=== PATIENT | male | born 1955 | race Caucasian/White ===

== ENCOUNTER 2018-06-19 16:17 | Emergency (ER) | payer OTHER, SELFPAY ==
[2018-06-19 16:17] VITALS: BP 165/105; PULSE 72; RESP 18; TEMP 36.4; O2SAT 97; BMI 33.7
--- NOTE | 2018-06-19 16:29 | CT_ITS ---
STUDY: CT BRAIN WITHOUT CONTRAST REASON FOR EXAM: Male, 63 years old. Headache. RADIATION DOSAGE (If Supplied By Facility): CTDIvol = ( 60.81 ) mGy, DLP = ( 1089.89 ) mGycm TECHNIQUE: Transaxial CT imaging of the brain was performed without administration of intravenous contrast material. Individualized dose optimization techniques were used for this CT. COMPARISON: None. FINDINGS: Normal soft tissue structures. Normal calvarium. Normal size ventricles and extra-axial spaces for the patient's age. Normal white matter tracts of the cerebral hemispheres. Normal basal ganglia and thalami. Normal brainstem. Normal cerebellum. There is no intracranial hemorrhage. There are no findings of an acute ischemic infarction. Normal visualized paranasal sinuses. CT/Brain/Head without Contrast IMPRESSION: Normal unenhanced CT scan of the brain. Electronically Signed: Terri Chapman MD at 17:32 EST Tel , Service support ,
--- NOTE | 2018-06-19 16:34 | ED.VISSUMM ---
- ER Visit Summary Date of Service: 06/19/18 Chief Complaint: Headache History of Present Illness: The patient is a 63 M who developed pain in the base of his left occiput approximately 7 days ago. He states he initial had a focal area of swelling there. It was also associated the left frontal headache. Over the past couple of days his entire scalp has become painful and he states his hair hurts. He did note some left upper dental pain today. He went to urgent care but was sent to the ER due to concern for trigeminal neuralgia. Patient denies fever or chills. He denies head injury. Physical Examination: Vital signs significant for blood pressure 165/105, otherwise unremarkable. Patient is lying in a well lit room in no acute distress. Head neck examination reveals no obvious sign of trauma. TMs are clear bilaterally. He has reproducible tenderness at the base of the left occiput. No midline cervical tenderness. Heart is regular rate and rhythm. Lung sounds are clear. Abdomen is soft nontender. Neuro exam reveals good strength and sensation throughout. Test Results: CBC and chemistry studies are unremarkable. CT head is normal. Emergency Department Course and Treatment: Patient was given morphine, Zofran, Flexeril, and Toradol. On repeat evaluation he is resting comfortably. I discussed with him I believe he has occipital neuralgia with pain radiating up across the scalp. Intraoral examination does reveal the left maxillary second molar to be broken at the gumline with some mild gum edema. He will be covered with antibiotics for this and given a dental referral list. He will be given prescriptions for Naprosyn, Flexeril, prednisone, and 10 tabs of [place]. Treatment Plan: [] Disposition: Discharge Impression: 1. Occipital neuralgia 2. Odontalgia This note was generated with Expert dictation software. It may contain incorrect words, spelling, and punctuation that were not noted in review of the chart prior to signing ED Disposition - Plan for ED Patient: Chief Complaint: Headache Referrals: Care Physician,No Primary [Primary Care Provider] -
[2018-06-19] MEDS: 0.9% Normal Saline 1,000 ML 999 ML IV (16:47)
[2018-06-19] MEDS: Ketorolac 30 MG/ML Syringe IV (16:48)
[2018-06-19] MEDS: Ondansetron 4 MG/2 ML Vial IV (16:48)
[2018-06-19] MEDS: Morphine 4 MG/ML Syringe IV (16:49)
[2018-06-19 17:16] LABS: Anion Gap 8 (5-15); BUN 20 mg/dL (7-18); BUN/Creat Ratio 19.6 RATIO (10-20); Calcium,Total 8.9 mg/dL (8.5-10.1); Chloride 106 mmol/L (98-107); Creatinine, Serum 1.02 mg/dL (0.70-1.30); EST Glomerular Filtration Rate 79 mL/min (>60); Est Glom Filt Rate - Afr Amer 96 mL/min (>60); Estimated Creatinine Clearance 93.37 ml/min; Glucose 92 mg/dL (74-106); Potassium 3.9 mmol/L (3.5-5.1); Sodium Level 142 mmol/L (136-145)
[2018-06-19 17:19] LABS: Absolute Lymphocyte Count 1.09 X10^3/ul (0.83-4.51); Absolute Neutrophil Count 3.2 X10^3/uL (2.0-7.7); Basophil# 0.05 X10^3/uL; Eosinophil# 0.15 X10^3/uL; Eosinophils% 2.9 % (0-5); Hematocrit 40.7 % (40-54); Lymphocyte # 1.09 X10^3/ul (4.0); Mean Corp Hgb Conc 34.4 g/gl (32-36); Mean Corpuscular Volume 90.2 fL (80-94); Mean Platelet Vol. 10.3 fl (6.2-12.0); Monocyte# 0.73 X10^3/uL; Monocyte% 14.1 % (0-10); Neutrophil # 3.16 X10^3/uL (2.7-7.7); Neutrophil % 60.8 % (47-70); Platelet Count 204 K/mm3 (150-450); RBC Distribution Width CV 12.3 % (11.6-14.6); RBC Distribution Width SD 40.4 fl (35.1-43.9); Red Blood Count 4.51 M/mm3 (4.6-6.2); White Blood Count 5.2 K/mm3 (4.4-11.0)
[2018-06-19 17:20] LABS: POSITIVE COUNT NO; POSITIVE DIFFERENTIAL NO; POSITIVE MORPHOLOGY NO
--- NOTE | 2018-06-19 18:31 | ED.DEP ---
ED Disposition - Plan for ED Patient: Disposition: Home or Assisted Living Chief Complaint: Headache Instructions: ED Tooth Pain, ED Cephalgia Unspecified Prescriptions: Hydrocodone Bitart/Apap 5-325 [[place] 5MG-325MG] 1 tablet PO Q4H PRN PRN 2 Days #10 tablet PRN Reason: Pain Naproxen [Naprosyn] 500 mg PO BID PRN PRN #20 tablet PRN Reason: Pain Prednisone 10 mg PO UD #33 tablet Cyclobenzaprine [Flexeril] 10 mg PO TID PRN #20 tablet PRN Reason: Muscle Spasm Penicillin V Potassium 500 mg PO 4X/DAY #40 tablet Referrals: Sally Walker MD [STAFF PHYSICIAN] - 1 Week
--- NOTE | 2018-06-19 18:34 | DCINST.ED_ITS ---
ED Disposition - Plan for ED Patient: Disposition: Home or Assisted Living Chief Complaint: Headache Instructions: ED Tooth Pain, ED Cephalgia Unspecified Prescriptions: Hydrocodone Bitart/Apap 5-325 [[place] 5MG-325MG] 1 tablet PO Q4H PRN PRN 2 Days #10 tablet PRN Reason: Pain Naproxen [Naprosyn] 500 mg PO BID PRN PRN #20 tablet PRN Reason: Pain Prednisone 10 mg PO UD #33 tablet Cyclobenzaprine [Flexeril] 10 mg PO TID PRN #20 tablet PRN Reason: Muscle Spasm Penicillin V Potassium 500 mg PO 4X/DAY #40 tablet Referrals: Sally Walker MD [STAFF PHYSICIAN] - 1 Week
[2018-06-19 18:52] VITALS: BP 128/74; PULSE 62; RESP 16; O2SAT 100
[2018-06-19 18:53] VITALS: BP 128/74; PULSE 62; RESP 16; O2SAT 100
== END 2018-06-19 18:55 | disposition home or self-care (01) ==
PROVIDERS: Emergency Provider Emergency Medicine
DX: M54.81 Occipital neuralgia (principal); K08.89 Other specified disorders of teeth and supporting structures
CPT/HCPCS: 70450; 80048; 85025; 96361; 96374; 96375; 99283; J7030; A4216; J2405

== ENCOUNTER 2024-03-11 09:35 | Day surgery (SDC) | payer MEDICARE, OTHER, SELFPAY ==
[2024-03-11] VITALS (11 sets, daily range): BP systolic 137–167; BP diastolic 82–97; PULSE 66–76; RESP 14–16; TEMP 36.3–37.2; O2SAT 96–100; BMI 32.8
--- NOTE | 2024-03-11 10:19 | CT_ITS ---
STUDY: CT CHEST WITHOUT CONTRAST REASON FOR EXAM: Male, 68 years old. Left axilla laceration, trauma RADIATION DOSAGE (If Supplied By Facility): CTDIvol = ( 18.04 ) mGy, DLP = ( 671.72 ) mGycm TECHNIQUE: Transaxial imaging was performed without the administration of intravenous contrast material. Multiplanar coronal and sagittal images were reformatted. Individualized dose optimization techniques were used for this CT. COMPARISON: No relevant priors. FINDINGS: CHEST Soft tissue injury is seen in the left axilla with the tiny air bubbles within the subcutaneous tissues intimate with the history of left axillary injury. There is evidence of overlying skin ulceration. Mild degree of increased markings in the subcutaneous tissues suggestive of edema. Calcified granuloma in the left lower lobe. There is no demonstrated pleural abnormality. There are calcifications of the coronary arteries. Normal mediastinum. Calcified left hilar lymph nodes. Normal unenhanced pulmonary arteries. Normal aorta arch and descending thoracic aorta. There are multi-level degenerative changes of the thoracic spine. There is no demonstrated abnormality of the visualized upper abdomen. CT/Chest without Contrast IMPRESSION: Soft tissue injury in the left axillary region as described. No evidence of hematoma or foreign body. Electronically Signed: Buck Sunshnie MD at 11:13 EDT ,
[2024-03-11] MEDS: Diphth,Pertuss(Acell),Tet Vac 0.5 ML Vial IM (10:36)
[2024-03-11] MEDS: Lidocaine 1% /Epi 1:100 (20ml) 20 ML Vial INFILT (10:37)
--- NOTE | 2024-03-11 10:39 | EX.ED.GENINJ ---
HPI History of Present Illness Chief Complaint: Laceration Informant: patient Narrative Narrative: Patient is a 68-year-old male with no significant past medical history (not seen a doctor in at least 10 years) presenting for laceration repair. Patient was walking out of his house and stepping off the front porch on the bottom step. He slipped on the bottom step and fell. He landed on an or mental castellano's hook underneath his left axilla. He sustained a laceration to the area. He initially did not think too much of it but when he went to pad it off his finger actually went at least 2 which is into the wound. He came in for further evaluation. He denies any associated numbness or tingling. Denies any chest pain or shortness of breath. He is not sure when his last tetanus was. He states he did hit his head a little bit on the multiple soft. Denies any associate loss of conscious. No other complaints or concerns at this time. Did take 2 Advil prior to arrival Tetanus Immunization: Unknown [facility] Home Medications ?Medication ?Instructions ?Recorded ?Last Taken ?Type cyclobenzaprine 10 mg tablet 10 mg PO TID PRN Muscle Spasm ##20 06/19/18 Unknown Rx naproxen 500 mg tablet 500 mg PO BID PRN PRN Pain #20 tabs 06/19/18 Unknown Rx penicillin V potassium 500 mg 500 mg PO 4X/DAY #40 tabs 06/19/18 Unknown Rx tablet prednisone 10 mg tablet 10 mg PO UD #33 tabs 06/19/18 Unknown Rx Allergy/AdvReac Type Severity Reaction Status Date / Time No Known Allergies Allergy Verified 03/11/24 09:36 Social History Smoking Status: Light Smoker (<10/day) ROS [facility] ED Constitutional Constitutional ED: Denies chills or fever(s) Eyes Eyes: Denies blurry vision or change in vision Cardiovascular Cardiovascular: Denies chest pain or palpitations Respiratory/Chest Respiratory/Chest: Denies cough or dyspnea Gastrointestinal Gastrointestinal: Denies nausea or vomiting Integumentary Reports other Details: left axilla laceration Neurologic Neurologic: Denies headache(s), paresthesias or weakness Hematologic/Lymphatic Hematologic/Lymphatic: Denies easy bleeding or easy bruising EXAM Physical Exam Const Vital Signs: 03/11/24 09:37 03/11/24 11:36 03/11/24 12:50 Temperature 98.9 F 97.5 F L Temperature Source Temporal Pulse Rate 75 66 76 Respiratory Rate 14 14 15 Blood Pressure 167/86 H 146/85 H 137/82 H Blood Pressure Mean 113 105 100 Pulse Ox 100 99 98 Oxygen Delivery Method Room Air Room Air Positive well nourished and well developed General Appearance ED: well developed and NAD HEENT Reports TM's clear HEENT Narrative: No cephalhematoma or signs of head trauma atraumatic Nose: Negative for septum abnormal Tympanic Membrane ED: Yes TM's clear Eyes PERRL Chest Wall inspection of chest normal and palpation of chest normal Chest Narrative: No chest wall crepitus appreciated Resp normal respiratory effort and clear to auscultation bilaterally Auscultation: Negative for diminished lung sounds Cardio regular rhythm Cardio Narrative: 2+ radial pulses Rate: regular rate GI normal to inspection, nondistended, normoactive bowel sounds and non-tender Palpation: soft; Negative for tender or guarding Extremity normal to inspection and full ROM General Extremety ED: Negative for deformity General Extremity: Negative for deformity Neuro oriented x3, moves all extremities, no focal motor deficits and no sensory deficits noted [place] Coma Scale: document GCS findings Spontaneous Obeys Commands Oriented 15 Sensorium / Orientation: alert Psych mental status grossly normal and thought process normal Skin Skin Narrative: Patient has a 7 cm linear full-thickness laceration in his left axilla. It tracks down at least 4 cm deep. No active bleeding at this time. There is some associated surrounding erythema/abrasion at the same level extending to his back. MDM MDM MDM Narrative Medical decision making narrative: Patient evaluated for left axilla laceration. It is quite deep and given the proximity to the thorax obtain a CT to ensure there is no deeper tracking or associated pulmonary/vascular injury. He overall is quite well-appearing. He is not any significant pain. He does not report any major head trauma and has a normal neurologic exam, normal neurovascular exam and does not appear distracted by his injury. I do not think he requires any head or C-spine imaging. Will update the patient's tetanus and perform laceration repair after CT of the chest. CT reviewed by myself shows the wound with free air tracking all the way to the pectoralis muscle. It appears to be at least 8 cm deep. I did discuss the case with Dr. Guillen, plastic surgery due to the extensive nature of the laceration. CT is removed by plastic surgeon as well. Thankfully there does not appear to be any major vascular or neurologic injury (based on physical exam as well as imaging). He does recommend operative cleanout because of the high risk of infection and how deep the wound tracks. Patient is agreeable with this. Patient is given dose of fentanyl and Zofran and will be transferred to the OR for surgical washout and closure. Patient agreeable this plan of care. Radiography Diagnostic Testing: Clinical Impression(s) from Imaging Studies Chest CT 03/11/24 10:19 IMPRESSION: Soft tissue injury in the left axillary region as described. No evidence of hematoma or foreign body. Electronically Signed: Buck Sunshine MD at 11:13 EDT , Management Discussion w/another healthcare provider: [employer]hip Instructor Discharge Plan Dx/Rx/DC Orders Clinical Impression: Penetrating chest wound, Need for [id number] (Tdap) vaccine Disposition Disposition: Acute Care Hospital [facility] Discharge Date/Time: 03/11/24 12:51
--- NOTE | 2024-03-11 11:47 | EX.PCM.CON.S ---
Assessment & Plan Assessment/Plan (1) Penetrating chest wound: PLAN: Complex laceration 2/2 elena's hook penetrating the left axilla. Gas/air underneath deep soft tissues of the chest/chest muscles. No signs of pneumothorax on physical exam or on CT scan. Plan for wash out in the OR given how far medial the gas is on the CT scan. Unlikely to get adequate wash out at bedside in the emergency department given the extent of the injury and the dirty tool (Elena's hook). He is at high risk for infection, but a thorough exploration and wash out in the OR should help mitigate that risk. I talked the patient extensively about the risks of surgery, including bleeding, infection, damage to surrounding structures, surgical site dehiscence and wound formation, need for wound care, need for repeat operations, failure to obtain the desired result, DVT/PE, and the risks of anesthesia including . All of their questions were answered, and they agreed to proceed with surgery. He signed our consent. HPI Consult Data Date of Consult: 03/11/24 HPI Narrative HPI Narrative: SOMMER ABAD is a delightful 68 M who presents for left axillary/chest wound after he fell in his garden today onto a elena's hook. The elena's hook went into the soft tissues of his chest and he sustained a complex laceration. A CT scan was ordered and demonstrated a deep penetrating soft tissue injury with air and gas around the pectoralis major several centimeters away from the entry point of the Elena took. Plastic surgery was therefore called for the complex laceration. The patient has no official past medical history as he has not seen a doctor in several years. His tetanus was updated in the emergency department today. Patient reports sharp severe pain in the left chest/axilla, improved by rest and worsened by movement. No numbness or tingling in the left upper extremity and no functional deficits that he knows in the left upper extremity. He is not having any trouble breathing. There was no signs of any pneumothorax on the CT scan. He chews tobacco, but does not smoke cigarettes anymore. The patient reports that they do not have any personal or family history of bleeding or clotting disorders. PFSH Home Medications ?Medication ?Instructions ?Recorded ?Last Taken ?Type cyclobenzaprine 10 mg tablet 10 mg PO TID PRN Muscle Spasm ##20 06/19/18 Unknown Rx naproxen 500 mg tablet 500 mg PO BID PRN PRN Pain #20 tabs 06/19/18 Unknown Rx penicillin V potassium 500 mg 500 mg PO 4X/DAY #40 tabs 06/19/18 Unknown Rx tablet prednisone 10 mg tablet 10 mg PO UD #33 tabs 06/19/18 Unknown Rx Allergy/AdvReac Type Severity Reaction Status Date / Time No Known Allergies Allergy Verified 03/11/24 09:36 Social History Smoking Status: Light Smoker (<10/day) Physical Exam Const alert and oriented x3 HEENT normocephalic Chest Chest Narrative: Left axilla with a linear 6 cm laceration. No crepitus. Tenderness to palpation medial to the zone of injury Resp normal respiratory effort and clear to auscultation bilaterally Cardio Rate: regular rate Rhythm: regular rhythm Extremity Extremity Narrative: LEFT UPPER EXTREMITY Motor: Gave thumbs up, OK sign, and peace sign. Vascular: 2+ radial and ulnar pulses Sensation: Sensation to light touch intact on the hand and forearm throughout No signs of brachial plexus injury. Imaging Radiology Impression Chest CT 03/11/24 10:19 IMPRESSION: Soft tissue injury in the left axillary region as described. No evidence of hematoma or foreign body. Electronically Signed: Buck Sunshine MD at 11:13 EDT , Charges/Coding Visit Charges Office Visits / Consults: 73440 OV L5 New 60min (57 modifier (taking patient to OR immediately for complex laceration repair) )
[2024-03-11] MEDS: fentaNYL 100 MCG/2 ML Ampul 50 MCG IV (12:40)
[2024-03-11] MEDS: Ondansetron 4 MG/2 ML Vial IV (12:40)
--- NOTE | 2024-03-11 12:49 | PCM.OP.BLANK ---
Operative Report Date of Procedure: 03/11/24 Surgery/Procedure Date: 11 Mar 2024 Incision/Procedure Start Time: 14:50 Incision Close/Procedure End Time: 15:13 PATIENT: Jak Patton SURGEON: Severiano Guillen MD PRE-OPERATIVE DIAGNOSIS: Left chest/axillary penetrating wound (Elena's hook) POST-OPERATIVE DIAGNOSIS: Same PROCEDURE PERFORMED: 1) Exploration of left axillary penetrating chest wound, CPT 24863 2) Closure of left chest wound, intermediate, CPT 79835 OPERATIVE FINDINGS: No foreign body INDICATIONS: Jak Patton is a 68-year-old male who was walking in his garden and fell on a elena's hook today and sustained a severe deep laceration to his left axilla/chest. On CT scan there was significant amounts of gas medially and it appeared that the wound tunneled significantly beneath the pectoralis major. Decision was therefore made to take back to the operating room for good washout and drain placement. He understands the risks and benefits of surgery. OPERATIVE DETAILS: Patient was correctly identified in preoperative holding and his left side was marked. He was taken back to the operating room where he was administered general anesthesia. He was prepped and draped in sterile fashion and all proper timeouts were performed. We began the procedure by taking a lighted retractor and examining the wound. The wound tunneled beneath the pectoralis major along the chest wall. We then irrigated with 3 L of normal saline deep within the wound at the very medial/deep aspect of the cavity for a thorough washout of the entire wound. There were no foreign bodies. The wound was then examined for any damaged structures with a lighted retractor. There was no active bleeding or any obvious nerve or muscle injury. Hemostasis was obtained with Bovie electrocautery and a small area of bleeding near the superficial aspect of the wound was controlled. A 19 Indonesian Davide drain was then placed and tunneled inferiorly and laterally and sutured into place. The wound was then closed in layers with 3-0 Vicryl deep Isidoro sutures followed by 3-0 Monocryl deep dermal and 3-0 Prolene interrupted skin sutures (intermediate closure 6 cm). The patient tolerated the procedure well and was awakened and taken to the PACU in stable condition. EBL: 25 cc Anesthesia: General ASA: 2 IVF: 500 LR UOP: Unmeasured no muniz Transfusions: None POST-OPERATIVE PLAN: X-ray obtained in the PACU and no pneumothoraces. F/u in 1 week to check the drain. Augmentin for 10 days (ordered). We will remove the Prolene sutures a 2-week.
[2024-03-11] MEDS: Lactated Ringers 1,000 ML 15 ML IV (13:14)
--- NOTE | 2024-03-11 13:41 | PRE.ANES_ITS ---
ASA Classification* ASA Classification ASA Classification: 2 Assessment & Plan Anesthesia* Anesthesia Assessment Anesthesia Assessment: Discussed sedation and/or anesthesia options, risks, benefits, and alternatives with patient/parents/legal guardian/POA. Questions invited. The patient/parents/legal guardian/POA seems to understand and agrees to proceed with anesthesia plan. Reviewed the physical assessment, medical history, allergy history and patient home medications list prior to surgery/procedure/anesthetic and documented any changes. Performed airway and anesthesia risk assessments. Anesthesia Type Anesthesia Type: General History Source History Obtained from:: Patient and Chart Anesthesia Focused Assessment* Temperature: 97.5 F Pulse Rate: 76 Blood Pressure: 137/82 Respiratory Rate: 15 Pulse Ox: 98 Oxygen Delivery Method: Room Air Airway Assessment Mouth opens: >3 cm Mallampati Score: II Teeth Condition: Intact Neck Range of motion (ROM): Limited ROM (Slight decrease in extension) Focused Labs Anesthesia Preop lab: CBC WBC 5.2 K/mm3 (4.4-11.0) 06/19/18 16:50 RBC 4.51 M/mm3 (4.6-6.2) L 06/19/18 16:50 Hgb 14.0 g/dl (13.0-16.5) 06/19/18 16:50 Hct 40.7 % (40-54) 06/19/18 16:50 Plt Count 204 K/mm3 (150-450) 06/19/18 16:50 CHEMISTRY Potassium 3.9 mmol/L (3.5-5.1) 06/19/18 16:50 Sodium 142 mmol/L (136-145) 06/19/18 16:50 BUN 20 mg/dL (7-18) H 06/19/18 16:50 Creatinine 1.02 mg/dL (0.70-1.30) 06/19/18 16:50 Glucose 92 mg/dL (74-106) 06/19/18 16:50 COAG Pre-Assessment Diagnosis/Proposed Procedure Planned Operative Procedure(s): Exploration left chest and axilla. Closure of wound over a drain. Anesthesia History Anesthesia History - bottle blowing machine tender: Anesthesia History - bottle blowing machine tender Hx Hospitalization Any Problems With Anesthesia Cholinesterase deficiency You/Your Family Experience fever (hyperthermia) with Relationship Recent Exposure to Contagious Disease Does patient have nerve stimulator Patient instructed to have device shut off --Does patient have Pacemaker No 03/11/24 13:13 or ICD? When Was Last Pacemaker Check QUESTION #4 FULL TEXT: You/Your Family Experience fever (hyperthermia) with Anesthesia Last Oral Intake Last Oral intake: Last Oral Intake NPO since 08:30 03/11/24 13:13 Meds taken in AM with sips of Yes 03/11/24 13:13 water? Meds patient instructed to motrin 03/11/24 13:13 take am of surgery Any additional information?: Yes Meds taken in AM with sips of water?: Yes PONV PONV - bottle blowing machine tender: PONV - bottle blowing machine tender Female HX of Motion Sickness HX of N/V After Surgery Non-Smoker Duration of Surgery greater than 60 minutes Number of Risk Factors PONV Score Height & Weight Height & Weight: Anesthesia: Height & Weight Height 6 ft 4 in 03/11/24 13:13 Weight: 122.47 kg 03/11/24 13:13 Body Mass Index (BMI) 32.8 03/11/24 13:13 Respiratory Assessment Respiratory Assessment - bottle blowing machine tender: Respiratory Tract Infection Hx - bottle blowing machine tender Hx Respiratory Tract Infection Any additional information?: Yes Hx Respiratory Tract Infection: No STOP Sleep Apnea STOP Sleep Apnea - bottle blowing machine tender: STOP Sleep Apnea - bottle blowing machine tender Hx Hypertension Hx Sleep Apnea CPAP BIPAP Do you snore loudly (louder than talking or can be heard Do you often feel tired/ fatigued/ sleepy during daytime? Has anyone observed you stop breathing during sleep? STOP Results QUESTION #5 FULL TEXT : Do you snore loudly (louder than talking or can be heard through closed doors)? Tobacco Use History Tobacco Use History - bottle blowing machine tender: Tobacco Use History - bottle blowing machine tender Tobacco Use Smoking Status Light Smoker (<10/day) 03/11/24 09:49 Hx Tobacco Use No 06/19/18 16:28 Years Smoking Packs Smoked per Day Smoking Cessation Date was within the last 15 years Hx Smoking Cessation Date Hx Smoking Cessation Counseling Hematologic Medial History Hematologic Hx - bottle blowing machine tender: Hematologic Medical Hx - vest backer Hx of Blood Transfusion Hx of Transfusion in last 3 Months Date of Last Transfusion (if within last 3 months) Ever experience any problems with transfusion(s)? Specify any problems Hx of Preganancy in last 3 Months Nurse Filling Out Transfusion & Questions: Date: Time: Patient unable to answer at this time (ie. confused, unrespo /Reproduction History /Reproductive History - bottle blowing machine tender: /Reproductive Hx- bottle blowing machine tender Hx Now Gestational Age (in weeks): EDC: Hx Hx Para Hx Section SAB Active Medications Active Medications: Current Medications Generic Name Dose Route Start Last Admin Trade Name Freq PRN Reason Stop Dose Admin Lactated Ringer's 1,000 mls @ 15 mls/hr 03/11/24 13:15 03/11/24 13:14 IV 15 mls/hr .Q48H GISSELLE Administration Ampicillin Sodium/Sulbactam 112 mls @ 150 mls/hr 03/11/24 13:26 Sodium 3 gm/ Sodium Chloride IV 03/11/24 14:10 X1 ONE PFSH Home Medications ?Medication ?Instructions ?Recorded ?Last Taken ?Type amoxicillin 875 mg-potassium 1 tab PO Q12H 10 days #20 tabs 03/11/24 Unknown Rx clavulanate 125 mg tablet oxycodone 5 mg tablet 5 mg PO Q12H PRN pain 7 days #14 03/11/24 Unknown Rx tabs Allergy/AdvReac Type Severity Reaction Status Date / Time No Known Allergies Allergy Verified 03/11/24 13:14 Surgical History (Updated 03/11/24 @ 13:[address] Felton Saab MD) S/P foot surgery, right S/P left knee arthroscopy Social History Smoking Status: Light Smoker (<10/day) Review of Systems (Anesthesia) ROS Narrative System reviewed and no additional complaints, except as documented.
[2024-03-11] MEDS: Ampicillin/Sulbactam 3 GM in 0.9% Normal Saline (100mL MB+) 100 ML IV (14:25)
--- NOTE | 2024-03-11 15:26 | PCM.POST.ANE ---
Anesthesia: Postop Eval I Current Vital Signs Temperature: 97.3 F Pulse Rate: 76 Blood Pressure: 167/86 Respiratory Rate: 16 Pulse Ox: 97 Oxygen Delivery Method: Room Air Assessment Airway patent: Yes Spontaneous unlabored respirations: Yes Mental status: Awake and Calm nausea: No Vomiting: No Anesthesia Complication: No Fluid Hydration Crystalloid volume administer (ml): 500 Total IV fluid infused: 500 Progress Note Anesthesia document: Postop Eval 1 completed: Yes
--- NOTE | 2024-03-11 15:27 | POSTOPAN2_ITS ---
Anesthesia Postop Eval I Sum Postop Eval Completion status Anesthesia document: Postop Eval 1 completed: Yes Anesthesia Postop Eval I Summary Anesthesia Postop Eval I Summary: Anesthesia Postop Eval I: Assessment Summary Airway patent Yes 03/11/24 15:27 [email or web address] Spontaneous unlabored Yes 03/11/24 15:27 [email or web address] respirations Mental status Awake,Calm 03/11/24 15:27 [email or web address] nausea No 03/11/24 15:27 [email or web address] Vomiting No 03/11/24 15:27 [email or web address] Anesthesia Postop Eval I: Fluid Summary Crystalloid volume administer 500 03/11/24 15:27 [email or web address] (ml) Colloids volume administered ( ml) Blood Product volume administered (ml) Total IV fluid infused 500 03/11/24 15:27 [email or web address] Anesthesia Postop Eval I: Summary Notes Anesthesia Complication No 03/11/24 15:27 [email or web address] Anesthesia Complication Comment: Post-operative progress note Anesthesia: Postop Eval II Evaluation Mental status: Awake and Calm Pain Level: 1 nausea: No Vomiting: No Complications Anesthesia Complication: No
--- NOTE | 2024-03-11 15:27 | PCM.POSTANE2 ---
Anesthesia Postop Eval I Sum Postop Eval Completion status Anesthesia document: Postop Eval 1 completed: Yes Anesthesia Postop Eval I Summary Anesthesia Postop Eval I Summary: Anesthesia Postop Eval I: Assessment Summary Airway patent Yes 03/11/24 15:27 [email or web address] Spontaneous unlabored Yes 03/11/24 15:27 [email or web address].[email or web address] respirations Mental status Awake,Calm 03/11/24 15:27 [email or web address].MDOT nausea No 03/11/24 15:27 [email or web address].MDOT Vomiting No 03/11/24 15:27 [email or web address] Anesthesia Postop Eval I: Fluid Summary Crystalloid volume administer 500 03/11/24 15:27 [email or web address].MDOT (ml) Colloids volume administered ( ml) Blood Product volume administered (ml) Total IV fluid infused 500 03/11/24 15:27 [email or web address] Anesthesia Postop Eval I: Summary Notes Anesthesia Complication No 03/11/24 15:27 [email or web address] Anesthesia Complication Comment: Post-operative progress note Anesthesia: Postop Eval II Evaluation Mental status: Awake and Calm Pain Level: 1 nausea: No Vomiting: No Complications Anesthesia Complication: No
--- NOTE | 2024-03-11 15:30 | RAD_ITS ---
STUDY: X-RAY CHEST REASON FOR EXAM: Male, 68 years old. Postoperative evaluation. In PACU. TECHNIQUE: Single frontal view of the chest. Lordotic projection. COMPARISON: None. FINDINGS: Linear atelectasis/scarring at the left base. There is no demonstrated pleural abnormality. Mild cardiomegaly. Normal mediastinum and sam. Normal visualized pulmonary arteries. Aortic tortuosity. No abnormality of the visualized soft tissue structures of the upper abdomen. RAD/Chest 1 View (Portable) IMPRESSION: Cardiomegaly with atelectasis/scarring at the left base. No active or acute cardiopulmonary disease. Electronically Signed: Dwight Caputo MD at 15:49 EDT ,
== END 2024-03-11 17:11 | disposition home or self-care (01) ==
LOC: ED 12:13 → SDC 12:51 → ACINP 12:53
PROVIDERS: Emergency Provider Emergency Medicine; Visit Provider Surgery Plastic and Reconstructive Surgery
PROC: (CPT 20101; principal; 2024-03-11 12:50)
DX: S21.332A Puncture wound without foreign body of left front wall of thorax with penetration into thoracic cavity, initial encounter (principal); S41.112A Laceration without foreign body of left upper arm, initial encounter; W10.9XXA Fall (on) (from) unspecified stairs and steps, initial encounter; Y93.01 Activity, walking, marching and hiking; Y92.018 Other place in single-family (private) house as the place of occurrence of the external cause; F17.220 Nicotine dependence, chewing tobacco, uncomplicated
CPT/HCPCS: 20101; 12032; 00400; 71045; 71250; 90715; 99284; J7030; J7120; A4216; J0295; J2405